=== PATIENT | male | born 1940 | race Caucasian/White ===

== ENCOUNTER 2019-07-10 09:04 | Day surgery (SDC) | payer MEDICARE, BC ==
[2019-07-09 15:04] VITALS: BMI 32.8
[2019-07-10 09:58] LABS: #Basophils 0.1 thou/uL (0.0-0.2); #Eosinphils 0.5 thou/uL (0.0-0.7); #Lymphocytes 1.7 thou/uL (1.20-3.40); #Monocytes 0.7 thou/uL (0.11-0.59); #Neutrophils 4.2 thou/uL (1.40-6.50); %Basophils 0.9 % (0.0-1.0); %Eosinophils 6.3 % (0.0-10.0); %Lymphocytes 23.9 % (21.0-51.0); %Monocytes 9.9 % (0.0-10.0); %Neutrophils 58.9 % (42.0-75.0); Hemoglobin 14.2 g/dL (14.0-18.0); Mean Corpuscular HGB CONC 34.3 g/dL (32.0-36.0); Mean Corpuscular Hemoglobin 31.7 pg (27.0-31.0); Mean Corpuscular Volume 92.6 fL (78.0-98.0); Mean Platelet Volume 8.1 fL (7.4-10.4); Platelet Count 165 thou/uL (130-400); RBC Distribution Width 12.1 % (11.5-14.5); Red Blood Cell (RBC) Count 4.48 mill/uL (4.70-6.10); White Blood Cell (WBC) Count 7.2 thou/uL (4.8-10.8)
[2019-07-10 10:06] LABS: INR-International Normal Ratio 1.1; Prothrombin Time 14.1 SEC (12.0-14.7)
[2019-07-10 10:07] LABS: PTT 31.1 SEC (22.9-36.1)
[2019-07-10 10:20] LABS: Anion Gap 14 mmol/L (10-20); BUN (Urea Nitrogen) 22 mg/dL (8.4-25.7); Calc. Creatinine Clearance 83 mL/min (70-130); Calcium 10.3 mg/dL (7.8-10.44); Carbon Dioxide 25 mmol/L (23-31); Chloride 103 mmol/L (98-107); Estimated GFR-MDRD 74; Glucose 210 mg/dL (83-110); Potassium 4.1 mmol/L (3.5-5.1); Sodium 138 mmol/L (136-145)
--- NOTE | 2019-07-10 13:41 | PRG ---
DATE OF SERVICE: 07/10/2019 SUBJECTIVE: Mr. Ngo seems to be doing well. He is here for a planned cardioversion. On the other hand, on further questioning, he has failed to continue his Xarelto currently, denies dizziness or loss of consciousness. No stroke-like symptoms. No neurological deficits. No PND or orthopnea. OBJECTIVE: VITAL SIGNS: Blood pressure 120/64, heart rate 81, respirations 20, and the patient is afebrile. GENERAL: Alert and oriented man, in no apparent distress. NECK: Supple. Jugular veins not distended. CHEST: Coarse without crackles. HEART: Sounds are regular to rate and rhythm. No murmur or gallop. Precordial pacemaker incision site is well healed. EKG reveals a continuous atrial fibrillation, ventricular pacing. ASSESSMENT AND PLAN: Resume Xarelto and reschedule cardioversion in a month. Job ID: [id number]
--- NOTE | 2019-07-13 16:41 | EKG ---
Test Reason : PREOP Blood Pressure : / mmHG Vent. Rate : 074 BPM Atrial Rate : 394 BPM P-R Int : 000 ms QRS Dur : 160 ms QT Int : 468 ms P-R-T Axes : 000 -63 061 degrees QTc Int : 519 ms Ventricular-paced rhythm Abnormal ECG Confirmed by FLO SANDERS ([id number]) on 07/13/2019 4:41:07 PM Referred By: JEANIE Confirmed By:FLO SANDERS
== END 2019-07-10 10:30 | disposition home or self-care (01) ==
LOC: CCL 09:04
PROVIDERS: ATTEND Internal Medicine Cardiovascular Disease
DX: I48.91 Unspecified atrial fibrillation (principal); Z53.09 Procedure and treatment not carried out because of other contraindication
CPT/HCPCS: 80048; 85025; 85610; 85730; 93005; 93010

== ENCOUNTER 2019-08-19 09:37 | Day surgery (SDC) | payer MEDICARE, BC ==
[2019-08-18 15:47] VITALS: BMI 32.6
[2019-08-19 10:57] LABS: #Basophils 0.1 thou/uL (0.0-0.2); #Eosinphils 0.4 thou/uL (0.0-0.7); #Monocytes 0.7 thou/uL (0.11-0.59); #Neutrophils 4.1 thou/uL (1.40-6.50); %Basophils 0.9 % (0.0-1.0); %Eosinophils 5.6 % (0.0-10.0); %Monocytes 9.3 % (0.0-10.0); %Neutrophils 57.1 % (42.0-75.0); Hemoglobin 13.8 g/dL (14.0-18.0); Mean Corpuscular HGB CONC 33.8 g/dL (32.0-36.0); Mean Corpuscular Hemoglobin 31.6 pg (27.0-31.0); Mean Corpuscular Volume 93.6 fL (78.0-98.0); Mean Platelet Volume 8.7 fL (7.4-10.4); Platelet Count 130 thou/uL (130-400); RBC Distribution Width 11.5 % (11.5-14.5); Red Blood Cell (RBC) Count 4.38 mill/uL (4.70-6.10); White Blood Cell (WBC) Count 7.2 thou/uL (4.8-10.8)
[2019-08-19 11:11] LABS: Anion Gap 14 mmol/L (10-20); BUN (Urea Nitrogen) 14 mg/dL (8.4-25.7); Calc. Creatinine Clearance 91 mL/min (70-130); Calcium 9.4 mg/dL (7.8-10.44); Carbon Dioxide 22 mmol/L (23-31); Chloride 105 mmol/L (98-107); Estimated GFR-MDRD 83; Glucose 163 mg/dL (83-110); Potassium 3.8 mmol/L (3.5-5.1); Sodium 137 mmol/L (136-145)
[2019-08-19 11:19] LABS: INR-International Normal Ratio 3.5; PTT 46.5 SEC (22.9-36.1); Prothrombin Time 34.9 SEC (12.0-14.7)
[2019-08-19] MEDS ORDERED: PROPOFOL 40 ML ONE (12:17)
--- NOTE | 2019-08-19 15:24 | OP ---
DATE OF PROCEDURE: 08/19/2019 PROCEDURE PERFORMED: Electrical cardioversion. ADDITIONAL REFERRING PHYSICIAN: Cliff Logan MD REASON FOR PROCEDURE: Mr. Ngo is an 79-year-old gentleman with history of chronic systolic congestive heart failure and persistent atrial fibrillation, has been maintain in sinus rhythm in the past, now persisting, here for a planned cardioversion. DESCRIPTION OF PROCEDURE: The patient received deep sedation with propofol by anesthesia specialist. After adequate level of sedation achieved, the ICD was interrogated and found to be in adequate order and a 35 joule internal shock was delivered which was unsuccessful to cardiovert the patient back to sinus rhythm. Following that, a synchromnized external shock was delivered, which promptly converted the patient back to sinus rhythm returned rate about 74 beats per minute. The patient tolerated the procedure well. No complications noted. PLAN: Continue Xarelto and and monitor for recurrent arrhythmias. Job ID: [id number] [id number]
== END 2019-08-19 14:30 | disposition home or self-care (01) ==
LOC: SDC 09:37
PROVIDERS: ATTEND Internal Medicine Cardiovascular Disease
PROC: 5A2204Z Restoration of Cardiac Rhythm, Single (ICD-10-PCS; principal; 2019-08-19)
DX: I48.19 Other persistent atrial fibrillation (principal); I50.9 Heart failure, unspecified; I50.22 Chronic systolic (congestive) heart failure; I25.10 Atherosclerotic heart disease of native coronary artery without angina pectoris; E11.9 Type 2 diabetes mellitus without complications; E78.5 Hyperlipidemia, unspecified; Z79.82 Long term (current) use of aspirin; Z79.84 Long term (current) use of oral hypoglycemic drugs; Z79.899 Other long term (current) drug therapy; Z95.1 Presence of aortocoronary bypass graft
CPT/HCPCS: 80048; 85025; 85610; 85730; 92960; 93005; 93010; J2704